=== PATIENT | male | born 1965 | race Caucasian/White ===

== ENCOUNTER → 2017-04-29 | Outpatient (CLI) | payer OTHER ==
--- NOTE | 2017-04-29 14:49 | RADIOLOGY REPORT (SQ) ---
EXAM DESCRIPTION: MRI CERVICAL SPINE WITHOUT COMPLETED DATE/TIME: 04/29/2017 10:17 am REASON FOR STUDY: CERVICALGIA M54.2 CERVICALGIA COMPARISON: None. TECHNIQUE: Sagittal and Axial imaging includes T1, T2, STIR and gradient echo sequences. LIMITATIONS: None. FINDINGS: ALIGNMENT: Normal. VERTEBRAE: Intact. BONE MARROW: Normal. No marrow replacement or reactive changes. DISCS: Diffuse decreased T2 weighted intervertebral disc signal. Post discectomy and fusion at C6-7. HARDWARE: None in the spine. CORD AND BASE OF BRAIN: Normal in size and signal intensity. SOFT TISSUES: No soft tissue masses. C1-C2: No significant spinal stenosis. C2-C3: No significant spinal stenosis or exit foraminal stenosis. C3-C4: Broad diffuse disc bulge and bony spurring is present effacing the ventral thecal sac and abut ting the leftward ventral spinal cord without cord flattening or abnormal intrinsic cord signal. Bor derline central canal stenosis. Mild right, moderate left foraminal narrowing from facet and uncover tebral hypertrophy C4-C5: Broad diffuse posterior disc bulge and bony spurring is present, effacing the ventral thecal s ac and abutting the ventral cord without cord flattening or abnormal intrinsic cord signal. Mild rossy tral canal narrowing. High-grade right, mild left foraminal narrowing from facet and uncovertebral h ypertrophy. C5-C6: Broad diffuse posterior disc bulge and bony spurring is present, partly effacing the ventral t hecal sac. No cord flattening or abnormal intrinsic cord signal. Borderline central canal narrowing . Moderate right, mild left foraminal narrowing from facet and uncovertebral hypertrophy. C6-C7: Post fusion, no central or foraminal encroachment. C7-T1: No significant spinal stenosis or exit foraminal stenosis. UPPER THORACIC: Incompletely imaged. No significant spinal stenosis or exit foraminal stenosis. OTHER: No other significant finding. IMPRESSION: Mild diffuse degenerative changes as above TECHNICAL DOCUMENTATION: JOB ID: [id number]- All Rights Reserved
== END ==
LOC: RAD 09:00
PROVIDERS: ATTEND Clinical Nurse Specialist Adult Health
DX: M54.2 Cervicalgia (principal); M47.892 Other spondylosis, cervical region
CPT/HCPCS: 72141